=== PATIENT | male | born 1985 | race African-American/Black ===

== ENCOUNTER 2019-12-07 08:26 | Day surgery (SDC) | payer BC ==
[~2019-12-07] VITALS: Ht 182.9 cm; Wt 140.7 kg
[2019-12-07 08:40] VITALS: BP 138/94; PULSE 91; TEMP 97.5
[2019-12-07] MEDS ORDERED: ADDERALL30 MG PO (08:43)
[2019-12-07] MEDS ORDERED: NORVASC 10MG10 MG PO (08:43)
[2019-12-07] MEDS ORDERED: PRINIVIL20 MG PO (08:43)
[2019-12-07] MEDS ORDERED: XANAX 0.5MG0.5 MG PO (08:43)
[2019-12-07] MEDS ORDERED: GLUCOPHAGE500 MG/TAB PO (08:44)
[2019-12-07] MEDS ORDERED: ASPIRIN 81M81 MG/TA2 PO (08:45)
[2019-12-07 09:55] VITALS: BP 128/74; PULSE 102; TEMP 97.2
--- NOTE | 2019-12-07 09:55 | NUR ---
Pt to [facility] via cart from ENDO. Pt awake and alert. Denies pain or nausea. Pt ambulates to recliner with stand by assistance. Warm blanket provided. Pt denies needing po fluid or food. Will continue to monitor. Call light within reach.
[2019-12-07 10:10] VITALS: BP 123/86; PULSE 95
--- NOTE | 2019-12-07 10:10 | NUR ---
Pt continues to rest. Denies needs. Call light within reach.
[2019-12-07 10:25] VITALS: BP 127/79; PULSE 80
--- NOTE | 2019-12-07 10:25 | NUR ---
Pt denies needs. Call light within reach.
[2019-12-07 10:40] VITALS: BP 127/74; PULSE 82
--- NOTE | 2019-12-07 10:40 | NUR ---
Pt continues to rest. Denies needs. Call light within reach.
--- NOTE | 2019-12-07 10:50 | NUR ---
Discharge instructions reviewed. Pt voices understanding. IV site discontinued with all parts intact. Pt up to dress. Call light within reach.
--- NOTE | 2019-12-07 11:13 | NUR ---
Pt escorted to private car via wheel chair. Pt accompanied home by his mother.
== END 2019-12-07 11:15 | disposition home or self-care (01) ==
LOC: SDCO 08:26
DX: K92.1 Melena (principal); K59.00 Constipation, unspecified; Z80.0 Family history of malignant neoplasm of digestive organs; K62.89 Other specified diseases of anus and rectum; G47.33 Obstructive sleep apnea (adult) (pediatric); F90.9 Attention-deficit hyperactivity disorder, unspecified type; I10 Essential (primary) hypertension; E66.9 Obesity, unspecified; E11.9 Type 2 diabetes mellitus without complications; Z80.42 Family history of malignant neoplasm of prostate; Z90.49 Acquired absence of other specified parts of digestive tract
CPT/HCPCS: J2250; J2704; J7030